=== PATIENT | female | born 1950 | race Caucasian/White ===

== ENCOUNTER 2016-11-10 08:31 | Emergency (ER) | payer MEDICARE ==
[2016-11-10 08:47] VITALS: BP 101/71
--- NOTE | 2016-11-10 09:34 | RAD ---
HISTORY: Mid foot pain, plantar tenderness COMPARISONS: July 20, 2004 VIEWS: 3, Frontal, lateral, and oblique views of the left foot FINDINGS: BONE DENSITY: Normal. BONES: There is no displaced fracture. JOINTS: There is no arthropathy. ALIGNMENT: There is no dislocation. SOFT TISSUES: Unremarkable. OTHER FINDINGS: None. IMPRESSION: NO ACUTE OSSEOUS INJURY. IF SYMPTOMS PERSIST, RECOMMEND REPEAT IMAGING.
--- NOTE | 2016-11-10 09:50 | UC ---
Blanca Ruggiero Auryana, scribed for Huey Leon MD on 11/10/16 at 0918 . Lower Extremity/Ankle HPI - HPI Summary HPI Summary: 66 year old female presents with left foot pain starting last night. She reports that at about 23:30 yesterday it began to throb and ache-patient elevated foot and wrapped in an ROBERT bandage. She states this morning, there was mild improvement in the foot pain but is still worried due to PMHx. Pain is about a 3-5 with ambulation. She denies any calf pain. She does report that recently she has been wearing shoes that are flat footed. PMHx is significant for osteoporosis. - History of Current Complaint Chief Complaint: UCLowerExtremity Stated Complaint: FOOT PAIN Time Seen by Provider: 11/10/16 09:04 Hx Obtained From: Patient Hx Last Menstrual Period: menapause ?: No Onset/Duration: Sudden Onset - yesterday evening, Still Present - slight improvement today Severity Initially: Mild Severity Currently: Mild Pain Intensity: 4 - states 3-5 pain with ambulation Pain Scale Used: 0-10 Numeric - Allergies/Home Medications Allergies/Adverse Reactions: Allergies Allergy/AdvReac Type Severity Reaction Status Date / Time GLUTEN INTOLERANCE Allergy Severe CELIAC Uncoded 10/20/15 19:56 DISEASE Sunscreen AdvReac Rash Uncoded 10/20/15 19:56 PMH/Surg Hx/FS Hx/Imm Hx - Additional Past Medical History Additional PMH: osteoporosis Endocrine History Of: Reports: Thyroid Disease - HYPOTHYROID Denies: Diabetes Cardiovascular History Of: Denies: Cardiac Disorders, Hypertension Respiratory History Of: Denies: COPD, Asthma GI/ History Of: Denies: Ulcer Cancer History Of: Denies: Breast Cancer - Surgical History Surgical History: Yes Surgery Procedure, Year, and Place: 2004 LAPAROSCOPIC REMOVAL OF CYST, 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 - Family History Known Family History: Positive: Unknown - Social History Occupation: Retired Lives: With Family - Alcohol Use: Occasionally Substance Use Type: None Smoking Status (MU): Never Smoked Tobacco - Immunization History Most Recent Influenza Vaccination: utd Review of Systems Constitutional: Negative Skin: Negative Eyes: Negative ENT: Negative Respiratory: Negative Cardiovascular: Negative Gastrointestinal: Negative Genitourinary: Negative Motor: Other - pain at the left foot Neurovascular: Negative Musculoskeletal: Negative Neurological: Negative Psychological: Negative All Other Systems Reviewed And Are Negative: Yes Physical Exam Triage Information Reviewed: Yes Appearance: No Pain Distress, Well-Nourished Vital Signs: Initial Vital Signs Temp 98.8 F 11/10/16 08:38 Pulse 68 11/10/16 08:38 Resp 18 11/10/16 08:38 BP 101/71 11/10/16 08:38 Pulse Ox 100 11/10/16 08:38 Vital Signs Reviewed: Yes Eyes: Positive: Conjunctiva Clear Neck: Positive: Supple Respiratory: Positive: Lungs clear Cardiovascular: Positive: RRR Bowel Sounds: Positive: Present Musculoskeletal: Positive: Strength Intact, ROM Intact, Other: - tenderness in the arch for the left foot Neurological: Positive: Alert Psychological: Positive: Age Appropriate Behavior Diagnostics - Radiology L Foot XR Xray Interpretation: No Acute Changes Radiology Interpretation Completed By: Radiologist Re-Evaluation - Re-Evaluation First Eval Re-Evaluation Time: 09:39 - discussed XR results and disicharge plan Change: Unchanged Lower Extremity Course/Dx - Course Course Of Treatment: ARCH SUPPORT, ICE, ELEAVATION, REST, DECLINES CRUTCHES. REEVAL IF WORSE OR NOT BETTER. - Differential Dx/Diagnosis Provider Diagnoses: LEFT FOOT PAIN IN ARCH. PROBABLE MID FOOT STRAIN OR PLANTAR FASCIITIS. Discharge - Discharge Plan Condition: Stable Disposition: HOME Patient Education Materials: Muscle Strain (ED), Foot Sprain (ED), Arthralgia ( ED), RICE Therapy (ED) Referrals: Deidra Montero MD [Primary Care Provider] - Additional Instructions: FOLLOW UP WITH YOUR DOCTOR. GO THE EMERGENCY DEPARTMENT WITH ANY WORSENING OF YOUR CONDITION OR QUESTIONS OR CONCERNS. The documentation as recorded by the Blanca cordova Auryana accurately reflects the service I personally performed and the decisions made by me, Huey Leon MD.
== END 2016-11-10 09:54 | disposition home or self-care (01) ==
LOC: UCEAST 08:31
DX: M79.672 Pain in left foot (principal); E03.9 Hypothyroidism, unspecified
CPT/HCPCS: 99211; G0463

== ENCOUNTER 2017-12-23 18:55 | Emergency (ER) | payer MEDICARE ==
[2017-12-23 19:10] VITALS: BP 127/85
[2017-12-23] MEDS ORDERED: Benzoin Compound STICK TOPICAL ONE (20:23)
--- NOTE | 2017-12-23 20:41 | UC ---
Laceration HPI - HPI Summary HPI Summary: Patient has a laceration on her distal right index finger. Patient scraped her finger along the inside of glue can that was sharp at 1830. Neuro motor and circulation intact distally. 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 Laceration Location: Finger - right index Mechanism Of Injury: Sharp Trauma Pain Intensity: 0 Related History: Dominant Hand Right - Allergies/Home Medications Allergies/Adverse Reactions: Allergies Allergy/AdvReac Type Severity Reaction Status Date / Time GLUTEN INTOLERANCE Allergy Severe CELIAC Uncoded 12/23/17 19:11 DISEASE Sunscreen AdvReac Rash Uncoded 12/23/17 19:11 PMH/Surg Hx/FS Hx/Imm Hx Previously Healthy: No Endocrine History: Hypothyroidism - Surgical History Surgical History: Yes Surgery Procedure, Year, and Place: 2004 LAPAROSCOPIC REMOVAL OF CYST, 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 - Family History Known Family History: Positive: Unknown - Social History Occupation: Retired Lives: With Family Alcohol Use: Rare Substance Use Type: None Smoking Status (MU): Never Smoked Tobacco - Immunization History Most Recent Influenza Vaccination: utd Review of Systems Constitutional: Negative Skin: Other - horizntal laceration accross pad of right distal index finger Eyes: Negative ENT: Negative Respiratory: Negative Cardiovascular: Negative Gastrointestinal: Negative Genitourinary: Negative Motor: Negative Neurovascular: Negative Musculoskeletal: Negative Neurological: Negative Psychological: Negative Is Patient Immunocompromised?: No All Other Systems Reviewed And Are Negative: Yes Physical Exam Triage Information Reviewed: Yes Appearance: Well-Appearing, No Pain Distress, Well-Nourished Vital Signs: Initial Vital Signs Temp 98.1 F 12/23/17 19:06 Pulse 76 12/23/17 19:06 Resp 16 12/23/17 19:06 BP 127/85 12/23/17 19:06 Pulse Ox 100 12/23/17 19:06 Vital Signs Reviewed: Yes Eye Exam: Normal Eyes: Positive: Conjunctiva Clear ENT Exam: Normal ENT: Positive: Normal ENT inspection, Hearing grossly normal. Negative: Trismus , Muffled voice, Hoarse voice Dental Exam: Normal Neck exam: Normal Neck: Positive: Supple, Nontender Respiratory Exam: Normal Respiratory: Positive: Chest non-tender, No respiratory distress, No accessory muscle use Cardiovascular Exam: Normal Cardiovascular: Positive: RRR, Pulses Normal, Brisk Capillary Refill Musculoskeletal Exam: Normal Musculoskeletal: Positive: Strength Intact, ROM Intact, No Edema Neurological Exam: Normal Neurological: Positive: Alert, Muscle Tone Normal Psychological Exam: Normal Skin Exam: Normal Laceration Repair - Laceration Repair 1 Description: Linear Laceration Size After Repair: Length (cm) - 1, Width (mm) - 0, Depth (mm) - 0 Modified For Repair: No Cleansing Completed Via Routine Prep: Yes Irrigation With Pressure Irrigation Device: Yes Closure Material: Skin Adhesive, SteriStrips Laceration Course/Dx - Course/Dx Course Of Treatment: Wound was approximated with skin glue and Steri-Strip . no bleeding neuro motor circulation intact distally after completion. dressing and splint applied for protection. patient will confirm with [facility] that her tetanus is up-to-date follow with PCP when necessary - Differential Dx - Laceration/Wound Provider Diagnoses: 1 cm laceration to right distal index finger Steri-Strips and glue repair Discharge - Sign-Out/Discharge Documenting (check all that apply): Discharge/Admit/Transfer - Discharge Plan Condition: Stable Disposition: HOME Patient Education Materials: Finger Laceration (ED), Skin Adhesive Care (ED), Steristrips (ED) Referrals: Deidra Montero MD [Primary Care Provider] - If Needed - Billing Disposition and Condition Condition: STABLE Disposition: Home
== END 2017-12-23 21:09 | disposition home or self-care (01) ==
LOC: UCEAST 18:55
DX: S61.210A Laceration without foreign body of right index finger without damage to nail, initial encounter (principal); W26.8XXA Contact with other sharp object(s), not elsewhere classified, initial encounter; Y93.9 Activity, unspecified; Y92.9 Unspecified place or not applicable; E03.9 Hypothyroidism, unspecified
CPT/HCPCS: 12001; 99211; G0463

== ENCOUNTER 2018-06-17 11:14 | Emergency (ER) | payer MEDICARE ==
[2018-06-17 11:31] VITALS: BP 147/85
[2018-06-17] MEDS ORDERED: HYDROcodone/ACETAMIN 5-325 MG* 1 TAB PO ONE (11:36)
--- NOTE | 2018-06-17 12:07 | UC ---
Hand/Wrist HPI - HPI Summary HPI Summary: 68-year-old woman comes in with chief complaint of left wrist pain. Patient slipped and fell just prior to arrival. Landed on her left wrist. Pain is primarily distal radius. It hurts to move her fingers and thumb but she is able to. No sensation deficit. no Skin break. 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 Pain Intensity: 7 - Allergies/Home Medications Allergies/Adverse Reactions: Allergies Allergy/AdvReac Type Severity Reaction Status Date / Time GLUTEN INTOLERANCE Allergy Severe CELIAC Uncoded 06/17/18 11:30 DISEASE Sunscreen AdvReac Rash Uncoded 06/17/18 11:30 PMH/Surg Hx/FS Hx/Imm Hx Endocrine History: Hypothyroidism - Surgical History Surgical History: Yes Surgery Procedure, Year, and Place: 2004 LAPAROSCOPIC REMOVAL OF CYST, 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 - Family History Known Family History: Positive: Unknown - Social History Alcohol Use: Rare Substance Use Type: None Smoking Status (MU): Never Smoked Tobacco - Immunization History Most Recent Influenza Vaccination: utd Review of Systems All Other Systems Reviewed And Are Negative: Yes Constitutional: Positive: Negative Skin: Positive: Negative Eyes: Positive: Negative ENT: Positive: Negative Respiratory: Positive: Negative Cardiovascular: Positive: Negative Motor: Positive: Decreased ROM - see hpi Neurovascular: Positive: Negative Musculoskeletal: Positive: Other: - see hpi Neurological: Positive: Negative Psychological: Positive: Negative Is Patient Immunocompromised?: No Physical Exam Triage Information Reviewed: Yes Appearance: Well-Appearing, Well-Nourished, Pain Distress - mild Vital Signs: Initial Vital Signs Temp 97.9 F 06/17/18 11:21 Pulse 70 06/17/18 11:21 Resp 16 06/17/18 11:21 BP 147/85 06/17/18 11:21 Pulse Ox 98 06/17/18 11:21 Vital Signs Reviewed: Yes Eye Exam: Normal Eyes: Positive: Conjunctiva Clear Neck exam: Normal Neck: Positive: Supple Respiratory: Positive: No respiratory distress Musculoskeletal: Positive: Other: - Left wrist is swollen of the distal radius is tender to palpation at that site. Normal capillary refill no sensation deficit. Creased range of motion with the palm and the index finger secondary to pain. No skin break. Neurological Exam: Normal Neurological: Positive: Alert, Muscle Tone Normal Psychological Exam: Normal Psychological: Positive: Age Appropriate Behavior Skin Exam: Normal Hand/Wrist Course/Dx - Course Course Of Treatment: Order Information: WRIST LEFT 3+ VWS. Accession Number: [id number]. CPT: 15259. INDICATION: Left wrist pain after a fall. COMPARISON : None. TECHNIQUE: 3 views left wrist. REPORT: There is an impacted comminuted fracture involving the distal metaphysis of the. left radius. On the lateral view radiograph there is approximately 30 degrees of dorsal. angulation. The remaining visualized bones appear to be intact and appropriately aligned. otherwise. Degenerative changes of the wrist are noted. IMPRESSION: Distal left radius fracture as described above. . <Electronically signed by Nigel Barclay MD in OV> 06/17/18 [id number]. I discussed the x-ray report with the patient and her and with orthopedics who reviewed the x-rays. Dr. Fernandes recommended splinting and following up with orthopedics as an outpatient. Patient is neurovascularly intact. I splinted the patient with a sugar tong splint and she is neurovascularly intact after placement of splint by myself. Outpatient no she should ice and elevate it. Also let her know if there is any problems with loss of feeling or blood flow she needs to get reevaluated right away. - Differential Dx/Diagnosis Provider Diagnosis: Left wrist fracture Discharge - Sign-Out/Discharge Documenting (check all that apply): Patient Departure All imaging exams completed and their final reports reviewed: Yes - Discharge Plan Condition: Stable Disposition: HOME Prescriptions: HYDROcodone/ACETAMIN 5-325 MG* [Clemmons 5-325 TAB*] 1 tab PO Q4H PRN #30 tab MDD 6 PRN Reason: Pain Patient Education Materials: Wrist Fracture in Adults (ED) Referrals: Deidra Montero MD [Primary Care Provider] - Debbie Fernandes MD [Medical Doctor] - Additional Instructions: FOLLOW UP WITH ORTHOPEDICS, DR FERNANDES. CALL AT 8AM TUESDAY MORNING, 12/10/18, TO ARRANGE FOLLOW UP. GET RECHECKED FOR ANY WORSENING OF YOUR CONDITION, NUMBNESS, LOSS OF CIRCULATION OR QUESTIONS OR CONCERNS. - Billing Disposition and Condition Condition: STABLE Disposition: Home
== END 2018-06-17 13:11 | disposition home or self-care (01) ==
LOC: UCEAST 11:14
DX: S52.502A Unspecified fracture of the lower end of left radius, initial encounter for closed fracture (principal); W01.0XXA Fall on same level from slipping, tripping and stumbling without subsequent striking against object, initial encounter; Y92.9 Unspecified place or not applicable
CPT/HCPCS: 25600; 99213; G0463

== ENCOUNTER 2018-06-20 09:55 | Day surgery (SDC) | payer MEDICARE ==
--- NOTE | 2018-06-19 13:00 | HP ---
PREOPERATIVE HISTORY AND PHYSICAL: DATE OF SURGERY/ADMISSION: 06/20/18 - OR EAST DATE OF OFFICE VISIT/ENCOUNTER: 06/19/18. ATTENDING SURGEON: Bethany Salazar MD * (DICTATED BY MELISSA FLORES) PROCEDURE: Open reduction and internal fixation left wrist. CHIEF COMPLAINT: Left wrist fracture after fall. HISTORY OF PRESENT ILLNESS: This is a 68-year-old female who sustained injury to her left wrist on 06/17/18. She was cutting down a [place] tree and fell on some ice on to her outstretched left hand. She was initially seen at [facility] and had x-rays, which showed a comminuted displaced fracture of her left distal radius. She was splinted and referred to Dr. Salazar for followup and additional treatment considerations. She denies any other injury and denies any associated numbness or tingling. After evaluation by Dr. Salazar and review of x-rays, it is recommended she undergo surgical intervention for best outcome and the patient has consented to proceed. PAST MEDICAL HISTORY: 1. Migraine headaches. 2. History of various fractures. 3. Hypothyroidism. 4. Osteoporosis. 5. Celiac disease. 6. History of hepatitis C as a teenager. PAST SURGICAL HISTORY: Laparoscopic removal of a cyst. CURRENT MEDICATIONS: 1. Rizatriptan p.r.n. migraines. 2. Cyanocobalamin 1000 mcg/mL q. month. 3. Fosamax 70 mg 1 tablet weekly. 4. Levothyroxine sodium 88 mcg daily. 5. Maxalt 5 mg at start of migraine. 6. Tylenol 325 mg 1 to 2 tablets p.r.n. pain. ALLERGIES: No known drug allergies. However, the patient was recently taking hydrocodone for this wrist fracture and experienced nausea and vomiting. FAMILY MEDICAL HISTORY: Noncontributory. 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 She denies tobacco use and recreational drug use. She drinks alcohol on occasion. REVIEW OF SYSTEMS: Negative for general, cephalic, cardiovascular. Respiratory : Positive for current congestion. Negative for GI, , other musculoskeletal, integumentary, endocrine, neurologic, and hematologic symptoms. Infectious Disease: Negative for MRSA and HIV. Positive for history of hepatitis C as a teenager. PHYSICAL EXAMINATION GENERAL: Well-developed, well-nourished 68-year-old female, in no acute distress. VITAL SIGNS: Height 5 feet 4 inches, weight 99 pounds. Pulse rate 68, blood pressure 110/78. HEENT: Normocephalic, atraumatic. Pupils are equal, round, and reactive to light and accommodation. Extraocular movements are intact. Throat is clear. NECK: Supple. No palpable lymph nodes. PULMONARY: Lungs are clear to auscultation bilaterally. No wheezes, rales or rhonchi. CARDIOVASCULAR: Regular rate and rhythm. S1, S2. No murmurs, rubs or gallops. No edema. ABDOMEN: Positive bowel sounds, soft, nontender. NEUROLOGICAL: Alert and oriented x3. Cranial nerves II through XII are intact. Sensation is intact to light touch. MUSCULOSKELETAL: On exam of her left wrist, it is maintained in a sugar-tong splint. She has mild swelling in her fingers, but she has good motion in the fingers. There is no ecchymosis and neurovascular function is intact. IMAGING STUDIES: X-rays AP, lateral, and oblique of the left wrist show a comminuted intraarticular fracture which is displaced at the left distal radius. IMPRESSION: Left distal radius fracture displaced. PLAN: The patient is scheduled to undergo an open reduction and internal fixation of the left wrist with Dr. Salazar on 06/20/18. She will return to the office 10 days postop for followup and suture removal. Prescription for tramadol was e- scribed to the patient's pharmacy for postoperative pain management. MELISSA FLORES [id number]/[facility] #: [id number] SL[place]
[~2018-06-20 09:55] MED LIST: Buffered Lidocaine 0.9% SYRIN* 5 ML/SYR SYRINGE INTRADERM ONE; Dexamethasone TAB* 4 MG ONE; Dexamethasone TAB* 4 MG PO ONE; DiMENhydriNATE IV* 50 MG/ML VIAL IV PUSH PRN; Famotidine IV* 10 MG/ML 2 ML (20 mg) IV ONE; Famotidine IV* 10 MG/ML 2 ML (20 mg) ONE; Lidocaine 1% INJ* 10 MG/ML 30 ML SDV ONE; Morphine VIAL* 4 MG/ML VIAL (1 ml vial) IV PRN; Naloxone* 0.4 MG/ML 1 ML VIAL IV PRN; Ondansetron ODT TAB* 4 MG ONE; Ondansetron TAB* 4 MG PO ONE; PROCHLORPERAZINE INJ 5 MG/ML 2 ML VIAL IV PRN; fentaNYL* 50 MCG/ML 2 ML VIAL (100 MCG VIAL) IV PRN; oxyCODONE/Acetamin 5/325 MG* TAB PO PRN
[2018-06-20] MEDS ORDERED: ceFAZolin 2 GM PREMIX in ORs 2 GM/50 ML BAG IVPB ONE (10:23)
[2018-06-20] MEDS ORDERED: ROPIVACAINE 5 MG/ML 30 ML BTL (0.5%) ONE (10:49)
[2018-06-20] MEDS ORDERED: Scopolamine 1.5 mg* PATCH ONE (10:50)
[2018-06-20] MEDS ORDERED: Midazolam* 1 MG/ML 5 ML VIAL (5 MG) ONE (11:12)
[2018-06-20] MEDS ORDERED: KETAMINE HCL* 50 MG/ML 10 ML VIAL ONE (11:12)
[2018-06-20] MEDS ORDERED: Propofol* 10 MG/ML 20 ML BTL ONE (12:04)
[2018-06-20] MEDS ORDERED: Lidocaine 2% PF * 5 ML VIAL ONE (12:04)
[2018-06-20 13:00] VITALS: BP 129/79
--- NOTE | 2018-06-20 17:50 | OP ---
DATE OF OPERATION: 06/20/18 [facility] DATE OF : 50 SURGEON: Bethany Salazar MD. LISW: MELISSA Bangura. ANESTHESIA: Block. PRE-OP DIAGNOSIS: Comminuted intraarticular fracture of the left distal radius. POST-OP DIAGNOSIS: Comminuted intraarticular fracture of the left distal radius. OPERATIVE PROCEDURE: Open reduction internal fixation left distal radius. INDICATIONS FOR PROCEDURE: Natalie is a 68-year-old female who slipped and fell on the ice while cutting a [place] tree. She fell onto her outstretched left hand. She suffered a comminuted intraarticular fracture of the distal radius. She presents for ORIF of the left distal radius. ESTIMATED BLOOD LOSS: Zero. TOURNIQUET TIME: About 30 minutes. DESCRIPTION OF PROCEDURE: The patient was brought to the operating room, was given a block anesthetic and placed in the supine position on the operating table with a tourniquet around her left upper arm. The skin of her left upper extremity was prepped and draped in the usual sterile fashion. The upper extremity was exsanguinated and the tourniquet elevated to 250 mmHg. A longitudinal incision was made over the FCR tendon sheath. We dissected sharply through the superficial and deep portion of the FCR tendon sheath and then the FPL muscle and tendon were retracted ulnarly. The pronator quadratus was incised and subperiosteally dissected off of the distal radius. There were multiple fracture fragments both intra and extraarticular. These were reduced with traction and manipulation and then secured 3 fragments of the articular surfaces with 4 distal and 3 proximal screws in a Synthes variable angle distal radius plate. The position of the hardware and fracture fragments were checked on the C-arm in the AP and lateral views and found to be satisfactory. The wound was copiously irrigated with saline. The pronator quadratus was repaired over the plate with 2-0 Polysorb suture. The FCR tendon sheath was repaired with 2-0 Polysorb suture and then the skin edges were reapproximated with 4-0 nylon suture. The wound was dressed with Xeroform , 4x4, Webril, and a volar splint in a bit of flexion. The patient tolerated the procedure well and was brought to the recovery room in good condition. [id number]/[facility] #: [id number] [facility]
== END 2018-06-20 12:24 | disposition home or self-care (01) ==
LOC: OREAST 09:55
PROVIDERS: ATTEND Orthopaedic Surgery
DX: S52.572A Other intraarticular fracture of lower end of left radius, initial encounter for closed fracture (principal); W19.XXXA Unspecified fall, initial encounter; Y93.89 Activity, other specified; E03.9 Hypothyroidism, unspecified; M81.0 Age-related osteoporosis without current pathological fracture; Z79.899 Other long term (current) drug therapy
CPT/HCPCS: 76000; A9270-GY; C1713; C1776; J0690; J2250; J2704; J2795; J8540